=== PATIENT | female | born 1945 | race Caucasian/White ===

== ENCOUNTER 2017-08-21 09:10 | Emergency (ER) | payer MEDICARE ==
[2017-08-21 09:26] VITALS: BP 154/84
--- NOTE | 2017-08-21 10:07 | UC ---
Skin Complaint HPI - HPI Summary HPI Summary: Patient has history of osteoarthritis and osteoporosis and c/o hip pain for the past 3 days for which she applied an old cold pack on rigth groin area after which she noticed an area of redness which corresponded to the one covered by the pack. She initially had some itching but states it is very mild if at all. Denies pain on the area, swelling, chills or fever. She states she has been having allergic reactions to different triggers but denies anything new. Has been on Fosamax for 5 -6 weeks and had two injections of Sinvisc on knee in May/June. - History of Current Complaint Chief Complaint: UCSkin Time Seen by Provider: 08/21/17 09:37 Stated Complaint: RASH Hx Obtained From: Patient ?: No Onset/Duration: Sudden Onset, Lasting Days Skin Exposure Onset/Duration: Days Ago Timing: Constant Onset Severity: Mild Current Severity: Mild Pain Intensity: 0 Location: Discrete Character: Exposure to Cold Continuous, Pruritus Aggravating Factor(s): Nothing Alleviating Factor(s): Nothing Associated Signs & Symptoms: Positive: Negative - Allergy/Home Medications Allergies/Adverse Reactions: Allergies Allergy/AdvReac Type Severity Reaction Status Date / Time No Known Allergies Allergy Verified 08/21/17 09:26 Home Medications: Home Medications Alendronate Sodium 70 mg PO DAILY 08/21/17 [History Confirmed 08/21/17] Review of Systems Constitutional: Negative All Other Systems Reviewed And Are Negative: Yes PMH/Surg Hx/FS Hx/Imm Hx Previously Healthy: Yes - Surgical History Surgical History: Yes Surgery Procedure, Year, and Place: cholecystectomy, sappendectomy, tonsillectomy, tubal ligation - Social History Alcohol Use: Rare Substance Use Type: None Smoking Status (MU): Former Smoker Physical Exam Triage Information Reviewed: Yes Appearance: Well-Appearing, No Pain Distress, Well-Nourished Vital Signs: Initial Vital Signs Temp 97 F 08/21/17 09:23 Pulse 76 08/21/17 09:23 Resp 16 08/21/17 09:23 BP 154/84 08/21/17 09:23 Pulse Ox 99 08/21/17 09:23 Vital Signs Reviewed: Yes Eyes: Positive: Conjunctiva Clear ENT: Positive: Normal ENT inspection, Hearing grossly normal, Pharynx normal Neck: Positive: Supple, Nontender Respiratory: Positive: Chest non-tender, Lungs clear, Normal breath sounds, No respiratory distress Cardiovascular: Positive: RRR, No Murmur, Pulses Normal, Brisk Capillary Refill Abdomen Description: Positive: Nontender Bowel Sounds: Positive: Present Skin Exam: Other - Rectangular erythematous area [id number] on right groin and upper thigh area, no swelling, no discharge, non tender, no fluctuation Course/Dx - Course Course Of Treatment: Patient with erythema on groin after applying a cold pack on it 3 days ago, shape of rash is identical to the pack, apply hydrocort cream bid for 7 days prn if pruritus recurs, avoid contact with pack. - Diagnoses Provider Diagnoses: contact dermatitis Discharge - Sign-Out/Discharge Documenting (check all that apply): Discharge/Admit/Transfer - Discharge Plan Condition: Good Disposition: HOME Patient Education Materials: Contact Dermatitis (ED), Hydrocortisone (On the skin) Referrals: Viola Rendon MD [Primary Care Provider] - - Billing Disposition and Condition Condition: GOOD Disposition: Home
== END 2017-08-21 10:21 | disposition home or self-care (01) ==
LOC: UCEAST 09:10
DX: L25.9 Unspecified contact dermatitis, unspecified cause (principal); M25.551 Pain in right hip; Z87.891 Personal history of nicotine dependence
CPT/HCPCS: 99212; G0463

== ENCOUNTER 2018-05-25 07:27 | Day surgery (SDC) | payer MEDICARE ==
[~2018-05-25 07:27] MED LIST: Acetaminophen TAB* 325 MG PO PRN; Buffered Lidocaine 1% SYRIN* 1 ML/SYRINGE INTRADERM ONE
[2018-05-25] MEDS ORDERED: Midazolam* 1 MG/ML 2 ML VIAL (2 MG) ONE (09:04)
[2018-05-25 10:17] VITALS: BP 133/66
[2018-05-25] MEDS ORDERED: Povidone Iodine 5% OPTH* 30 ML BTL ONE (11:08)
[2018-05-25] MEDS ORDERED: Neomycin/Polymy/Dex OPTH.SUSP* MAXITROL 0.1% 5 ML ONE (11:08)
[2018-05-25] MEDS ORDERED: Cyclopentolate 1% OPTH.SOL* 2 ML BTL ONE (11:08)
[2018-05-25] MEDS ORDERED: Proparacaine 0.5% OPHTH.SOL* 15 ML BTL ONE (11:08)
[2018-05-25] MEDS ORDERED: acetaZOLAMIDE TAB* 250 MG ONE (11:08)
[2018-05-25] MEDS ORDERED: Ketorolac 0.5% OPHTH (NF) 0.5 % 5 ML BTL ONE (11:08)
[2018-05-25] MEDS ORDERED: Phenylephrine OPHTH SOL 2.5%* 2 ML ONE (11:08)
[2018-05-25] MEDS ORDERED: Lidocaine 2% EPI 1:200000 MPF*10-20 ML VIAL ONE (11:08)
[2018-05-25] MEDS ORDERED: Lidocaine 1%* 5 ML VIAL ONE (11:08)
--- NOTE | 2018-05-25 11:46 | OP ---
OPERATIVE NOTE: DATE OF OPERATION: 05/25/18 DATE OF : 47 SURGEON: Alf Simon M.D. PREOPERATIVE DIAGNOSIS: Cataract, left eye. POSTOPERATIVE DIAGNOSIS: Cataract, left eye. OPERATIVE PROCEDURE: Extracapsular cataract extraction with intraocular lens implant, left eye. PROCEDURE: The patient was brought to the operating room after being given 1/2% Alcaine with epineph rine drops in the preoperative area. The eye was prepped and draped in the usual sterile fashion. S terile drape and eyelid speculum were placed. Again, topical 1/2% Alcaine with epinephrine was given . A paracentesis incision was made at the 3 o'clock position with the No. 75 blade. Clear cornea in cision 2.2 x 2.2-mm was created at the 6 o'clock position starting at the anterior limbus using the 2 .2-mm keratome. The anterior chamber was irrigated with 0.4 mL of 1% non-preservative intracameral l idocaine and filled with DisCoVisc. A capsulorrhexis was completed using the cystotome and the Utrat a forceps. Hydrodissection was performed with balanced salt solution. The lens nucleus was removed w ith the Phacoemulsification handpiece without incident. Cortex was removed with the irrigation-aspir ation handpiece. The capsular bag was re-inflated using DisCoVisc and an [id number] implant was inser jackelyn with the shooter. The irrigation-aspiration handpiece was used to remove all residual DisCoVisc. The eye was refilled with balanced salt solution and the wound checked and found to be watertight. Topical Maxitrol drops were given. [id number]/[facility] #: [id number]
== END 2018-05-25 10:02 | disposition home or self-care (01) ==
LOC: OREAST 07:27
PROVIDERS: ATTEND Specialist
DX: H25.12 Age-related nuclear cataract, left eye (principal); H34.8312 Tributary (branch) retinal vein occlusion, right eye, stable; H40.013 Open angle with borderline findings, low risk, bilateral; E03.9 Hypothyroidism, unspecified; M81.0 Age-related osteoporosis without current pathological fracture; Z87.891 Personal history of nicotine dependence; J45.909 Unspecified asthma, uncomplicated
CPT/HCPCS: A9270-GY; J2250; V2632

== ENCOUNTER 2018-06-01 09:40 | Day surgery (SDC) | payer MEDICARE ==
[2018-06-01] MEDS ORDERED: Midazolam* 1 MG/ML 2 ML VIAL (2 MG) ONE (11:59)
[2018-06-01] MEDS ORDERED: fentaNYL* 50 MCG/ML 2 ML VIAL (100 MCG VIAL) ONE (12:00)
[2018-06-01 13:00] VITALS: BP 150/89
--- NOTE | 2018-06-01 13:38 | OP ---
OPERATIVE NOTE: DATE OF OPERATION: 06/01/18 DATE OF : 47 SURGEON: Alf Simon MD. PREOPERATIVE DIAGNOSIS: Cataract, right eye POSTOPERATIVE DIAGNOSIS: Cataract, right eye OPERATIVE PROCEDURE: Extracapsular cataract extraction with intraocular lens implant right eye. PROCEDURE: The patient was brought to the operating room after being given 1/2% Alcaine with epineph rine drops in the preoperative area. The eye was prepped and draped in the usual sterile fashion. S terile drape and eyelid speculum were placed. Again, topical 1/2% Alcaine with epinephrine was given . A paracentesis incision was made at the 9 o'clock position with the No.75 blade. Clear cornea inc ision 2.2 x 2.2-mm was created at the 12 o'clock position starting at the anterior limbus using the 2 .2-mm keratome. The anterior chamber was irrigated with 0.4 mL of 1% non-preservative intracameral l idocaine and filled with DisCoVisc. A capsulorrhexis was completed using the cystotome and the Utrat a forceps. Hydrodissection was performed with balanced salt solution. The lens nucleus was removed w ith the Phacoemulsification handpiece without incident. Cortex was removed with the irrigation-aspir ation handpiece. The capsular bag was re-inflated using DisCoVisc and an SN60WF 21.5 implant was ins erted with the shooter. The irrigation-aspiration handpiece was used to remove all residual DisCoVis c. The eye was refilled with balanced salt solution and the wound checked and found to be watertight . Topical Maxitrol drops were given. [id number]/[place] #: [id number]
== END 2018-06-01 13:12 | disposition home or self-care (01) ==
LOC: OREAST 09:40
PROVIDERS: ATTEND Specialist
DX: H25.11 Age-related nuclear cataract, right eye (principal); H34.8312 Tributary (branch) retinal vein occlusion, right eye, stable; H40.013 Open angle with borderline findings, low risk, bilateral; Z87.891 Personal history of nicotine dependence; M81.0 Age-related osteoporosis without current pathological fracture; E78.49 Other hyperlipidemia; R73.01 Impaired fasting glucose; E55.9 Vitamin D deficiency, unspecified
CPT/HCPCS: J2250; J3010; V2632